=== PATIENT | male | born 1950 | race Caucasian/White ===

== ENCOUNTER 2017-02-28 10:53 | Inpatient (IN) ==
[2017-02-28 14:29] LABS: ALLEN TEST YES; BE 0.3 mmoll (-3.0-3.0); BLOOD TYPE ARTERIAL; DRAW SITE R RADIAL; METHB 1.2 % (0.0-1.5); MODALITY ROOM AIR; O2(CT) 8.4 mL/dL (15.0-23.0); PCO2(98.6) 36 mmHg (35-45); PO2(98.6) 82 mmHg (60-100); SAMPLE BLOOD; SAO2 98.6 % (95.0-100.0); THB 6.1 g/dL (11.5-17.4); pH(98.6) 7.44 (7.35-7.45)
[2017-02-28 14:31] LABS: BASO% 0.7 % (0.0-0.8); EOS# 0.09 X1000 (0.0-0.7); EOS% 1.6 % (0.0-10.0); HEMATOCRIT 22.5 % (42.0-52.0); HEMOGLOBIN 6.1 g/dL (14.0-18.0); IMM GRAN# 0.02 X1000 (0.0-0.04); IMM GRAN% 0.4 % (0.0-0.5); LYMPH% 24.6 % (20.5-51.1); MCH 17.6 PG (27-31); MCHC 27.1 g/dL (33-37); MONO# 0.58 X1000 (0.11-0.59); MONO% 10.2 % (1.7-9.3); MPV 8.7 FL (7.4-10.4); NEUT% 62.5 % (42.2-75.2); PLT 296 X1000 (130-400); RBC 3.46 XMIL (4.7-6.1)
[2017-02-28 14:32] LABS: MANUAL DIFF NEEDED? YES
[2017-02-28 15:12] LABS: AGAP 12; BUN 16 mg/dL (8-22); CALCIUM 8.3 mg/dL (8.8-10.2); CHLORIDE 104 mmol/L (98-107); COSMO 276; POTASSIUM 4.3 mmol/L (3.5-5.1); SODIUM 138 mmol/L (136-145); TCO2 22 mmol/L (25-35); TOTAL BILIRUBIN 0.54 mg/dL (0.20-1.00)
[2017-02-28 15:13] LABS: ALBUMIN 3.9 g/dL (3.5-5.0); ALKALINE PHOSPHATASE 80 U/L (32-122); CK PROFILE 73 U/L (24-204); GOT 20 U/L (10-34); GPT 22 U/L (10-44); TOTAL PROTEIN 6.3 g/dL (6.3-8.3)
[2017-02-28 15:24] LABS: BASO 2 % (0-1); EOS 1 % (1-10); LYMPHS 24 % (21-51); MONO 6 % (1-9)
[2017-02-28 15:25] LABS: HYPOCHROM 2+
--- NOTE | 2017-02-28 16:58 | Diag Imaging Result Document ---
PROCEDURE NAME: CT ABD/PELVIS W/ IV CONT ONLY - 02/28/2017 CT ABDOMEN AND PELVIS WITH IV CONTRAST: COMPARISON: None available. FINDINGS: There are several cystic-appearing renal densities bilaterally. There is no hydronephrosis. There is an irregular enhancing mass at the anterior aspect of the urinary bladder that is highly concerning for neoplasm. It measures approximately 5 x 3.7 cm axially. There are a couple of small bladder diverticula bilaterally. Prostatic calcifications are noted. Just anterior to the bladder wall mass, there is mild mesenteric stranding indicating invasion by the mass. There are perhaps a few shotty lymph nodes in this region as well. No other significant lymphadenopathy is appreciated. There is a left inguinal hernia that contains only fat. There is aortoiliac atherosclerotic calcification, but no evidence of aneurysm. The remainder of the solid viscera of the abdomen and pelvis and the remainder of the GI tract is essentially unremarkable. There is nothing that would indicate bony metastatic disease. IMPRESSION: 1. Prominent irregular urinary bladder wall mass highly concerning for neoplasm. 2. Other incidental/nonacute findings detailed above.
[2017-02-28 17:35] LABS: URINE SOURCE VOIDED
[2017-02-28 17:42] LABS: URINE MICRO REVIEW NEEDED? YES
[2017-02-28 17:43] LABS: BILIRUBIN URINE NEGATIVE (NEGATIVE); BLOOD URINE LARGE (NEGATIVE); COLOR BROWN; GLUCOSE URINE NEGATIVE (NEGATIVE); LEUKOCYTES URINE NEGATIVE (NEGATIVE); NITRITE URINE NEGATIVE (NEGATIVE); PH URINE 5.5; PROTEIN URINE 70 mg/dL (NEGATIVE); TURBIDITY URINE HAZY (CLEAR); UR EPITHELIAL CELLS <10 /HPF (<10); URINE BACTERIA NEGATIVE /HPF; URINE RBC TNTC /HPF (<10); UROBILINOGEN URINE NORMAL (NORMAL)
[2017-02-28 17:56] LABS: SP GRAVITY URINE > 1.030; URINE WBC 20-40 /HPF (<10)
[2017-02-28 18:08] LABS: HEMOGLOBIN A1C 5.1 % (4.8-6.0)
[2017-02-28] MEDS: LEVAQUIN 500 MG/D5W 500 MG/100 ML IVPB IV SCH (19:45)
[2017-02-28] MEDS ORDERED: NS 500 ML ONE (21:25)
[2017-02-28] MEDS ORDERED: NS 500 ML IV SCH (21:30)
--- NOTE | 2017-02-28 22:05 | HISTORY AND PHYSICAL ---
CHIEF COMPLAINT: Shortness of breath. Exertional chest pain for the last 2 days. HISTORY OF PRESENT ILLNESS: He is a 66-year-old white gentleman was not seen in my office since 08/30/2016. Apparently he came in with hematuria and lower abdominal pain. He also has exertional shortness of breath and chest pain. EKG showed nonspecific intraventricular conduction delays. He appears to be very pale, blood pressure is low. He refused to come but I insisted to be admitted to the hospital. Upon admission hematocrit was 22. CT scan of the abdomen, pelvis showed a bladder mass suspicious for invasion findings. As a result, hospital admission was warranted. PAST MEDICAL HISTORY: Coronary artery disease, metabolic syndrome, reflux disease, hyperlipidemia, multiple skin tags. PAST SURGICAL HISTORY: Stefan fundoplication, TURP 07/2015 by MARYJO Perdomo, 9 stents placement. MEDICATIONS: In my practice Lipitor 20 mg daily, nitroglycerin as needed, sotalol 80 p.o. b.i.d., Flomax 0.4 daily, warfarin 6 mg b.i.d. ALLERGIES: Morphine sulfate. SOCIAL HISTORY: Living in [place]. No smoking, no alcohol. Working in local [employer]. , 4 children. FAMILY HISTORY: Not known due to adoption. HEALTH MAINTENANCE: Declined vaccinations, colonoscopies, last prostate exam 02/2016 and physical as well. REVIEW OF SYSTEMS: HEENT: No headache. No vision problem. No earache. No sore throat. Dizziness upon standing. Neck: No goiter. No lymphadenopathy. No bruit. Cardiopulmonary: Exertional shortness of breath and chest pains relieving with rest. GI: No nausea, vomiting, abdominal pain. No altered bowel habits, bleeding per rectum. : Lower abdominal cramps, intermittent hematuria for the last few weeks on Coumadin. Feet: No swelling of feet. No joint pains. Neuro: Dizziness upon standing. Otherwise no weakness or seizures. EXAMINATION: Vital signs: Afebrile. Blood pressure is stable now, weight 260 pounds, 6 feet 5 inches tall. HEENT: Atraumatic, normocephalic. Pupils equal, reactive to light. Pale. Blood pressure is low in my office. TMs are normal. Neck: Supple. No lymphadenopathy. No goiter. Chest: Bilateral air entry. No rales, no wheezing. Heart: Sounds are regular. Belly: Soft, nontender. No signs of peritonitis. Rectal: Prostate is slightly enlarged. Heme-negative stool. Extremities: No peripheral edema, cyanosis. Neuro: No obvious neurological deficits. INVESTIGATIONS: CBC. White cell count 5.6, hematocrit 22, MCV is low, platelets 296,000. ABG on room air pH is 7.44, pCO2 36, PO2 82, bicarb 25. SMA 7: Sodium 138, potassium 4.3, chloride 104, CO2 22, BUN 16, creatinine 0.8, glucose 86, A1c 5.9, calcium 8.3, magnesium is normal and liver function tests were normal. Cardiac enzymes were normal. ProBNP was normal and urine positive for blood. CT scan of the abdomen and pelvis. Prominent irregular bladder mass, no hydronephrosis, couple of small bladder diverticula, prostate calcifications noted, fat containing left inguinal hernia. ASSESSMENT AND PLAN: 1. A 66-year-old white gentleman admitted to the hospital with symptomatic anemia due to hematuria with underlying Coumadin, hematocrit 22. Plan is transfusion 2 units of packed RBCs. Follow up on CBC, PT and also abnormal CT with a urinary bladder mass and follow up on cytology, Dr. Sandoval consult. 2. Status post transurethral resection of prostate for benign prostatic hypertrophy and biopsy was negative for prostate malignancy. 3. Coronary artery disease with multiple stents, abnormal EKG. Follow up on cardiac enzymes. 4. Will reconcile home medicines once his hemodynamics are stable. Discussed with the patient as well as Dr. Sandoval. cc: Emiliano Varela MD
[2017-03-01] MEDS: LIPITOR PO SCH ×2 (00:33→21:52)
[2017-03-01] MEDS: LASIX IV SCH ×2 (00:35→04:10)
--- NOTE | 2017-03-01 05:30 | EKG Report ---
Test Performed on : 02/28/2017 11:13:17 AM Test Reason : No Order in QPD Blood Pressure : / mmHG Vent. Rate : 080 BPM Atrial Rate : 089 BPM P-R Int : 000 ms QRS Dur : 132 ms QT Int : 444 ms P-R-T Axes : 000 246 064 degrees QTc Int : 512 ms Suspect arm lead reversal, interpretation assumes no reversal Wide QRS rhythm. Right bundle branch block Possible Lateral infarct , age undetermined Inferior infarct , age undetermined Abnormal ECG No previous ECGs available Unconfirmed Result
[2017-03-01 06:42] LABS: BASO% 0.7 % (0.0-0.8); EOS# 0.14 X1000 (0.0-0.7); EOS% 1.7 % (0.0-10.0); HEMOGLOBIN 8.3 g/dL (14.0-18.0); IMM GRAN# 0.02 X1000 (0.0-0.04); IMM GRAN% 0.2 % (0.0-0.5); LYMPH# 1.98 X1000 (1.2-3.4); LYMPH% 24.5 % (20.5-51.1); MANUAL DIFF NEEDED? YES; MCH 18.9 PG (27-31); MCHC 28.6 g/dL (33-37); MCV 66.2 FL (81-99); MONO% 12.4 % (1.7-9.3); MPV 9.3 FL (7.4-10.4); NEUT% 60.5 % (42.2-75.2); PLT 345 X1000 (130-400); RBC 4.38 XMIL (4.7-6.1)
[2017-03-01 06:44] LABS: INR 1.28; PROTIME 13.6 Seconds (9.2-11.7)
[2017-03-01 06:49] LABS: AGAP 15; BUN 18 mg/dL (8-22); CALCIUM 8.8 mg/dL (8.8-10.2); CHLORIDE 102 mmol/L (98-107); COSMO 283; SODIUM 140 mmol/L (136-145); TCO2 23 mmol/L (25-35)
[2017-03-01 07:44] LABS: EOS 2 % (1-10); HYPOCHROM 2+; LYMPHS 22 % (21-51); MONO 8 % (1-9); NRBC 1 % (0-0)
[2017-03-01] MEDS ORDERED: VENOFER IV ONE (08:42)
--- NOTE | 2017-03-01 08:54 | PROGRESS NOTE ---
DATE: 03/01/2017 SUBJECTIVE: No chest pain. Shortness of breath improved after 2 units of packed RBCs. REVIEW OF SYSTEMS: None reported. PHYSICAL EXAMINATION: Vital Signs: Afebrile, blood pressure is 124/70, standing was 97/62. Is and Os: Negative 1.5. HEENT Examination: Anemia slightly improved. Neck: Supple. Chest: Clear to auscultation. Heart: Heart sounds are regular. Abdomen: Belly is soft, nontender. Good bowel sounds. Extremities: No peripheral edema, cyanosis, clubbing. DIAGNOSTIC DATA: EKG showing right bundle branch pattern, pacemaker spikes. INVESTIGATIONS: CBC: White cell count 8, hematocrit 29, platelets 345,000. PT 13, INR 1.2. SMA 7: Sodium 140, potassium 4, chloride 102, BUN 18, creatinine 1, glucose 121, hemoglobin A1c 5.1, calcium 8.8. Cardiac enzymes were normal. Urine cytology is pending. A CT of the abdomen and pelvis, findings were noted. ASSESSMENT AND PLAN: 1. Symptomatic anemia with underlying coronary artery disease. Keep the hematocrit around 30 and will also give her 1 bag of iron infusion. 2. Still orthostatic. We will hold the blood pressure medicines. 3. History of coronary artery disease, on Coumadin. INR is 1.28. We will hold on. 4. Hematuria. Follow up on urine cytology. Discussed with the patient the suspicious bladder mass. Consulted Dr. Sandoval. He will do a cystoscopy in the morning. 5. Benign prostatic hyperplasia, status post transurethral resection of the prostate in 2014. Biopsy was negative. 6. We will hold the blood pressure medicine, continue orthostatic, and level of documentation 25 minutes. cc: Emiliano Varela MD
[2017-03-01] MEDS ORDERED: VENOFER 300 MG in NS 250 ML IV ONE (10:00)
--- NOTE | 2017-03-01 14:37 | CONSULTATION ---
DATE OF CONSULTATION: 03/01/2017 ATTENDING/REFERRING PHYSICIAN: Lizbeth Varela MD HISTORY OF PRESENT ILLNESS: This 66-year-old male was admitted with symptomatic acute blood-loss anemia. CT scan revealed a large mass in the bladder. The patient states he has had bleeding off and on for over 2 years. He states it seemed to of started after a TURP. He denies any history of kidney stones or problems with urinary tract infections. He states he is voiding without difficulty since the TURP. The patient has been transfused 2 units of packed red cells and feels much better. PAST MEDICAL HISTORY: Coronary artery disease, status post placement of coronary artery stents the last several years ago. A total of 9 stents have been placed. Gastroesophageal reflux disease. Elevated cholesterol. CURRENT MEDICATIONS: Documented on the chart and include Coumadin, which he has been off of now for 2 days. PAST SURGICAL HISTORY: Coronary artery stent placement, Stefan fundoplication. TURP. Multiple skin tags excised. SOCIAL HISTORY: No cigarettes since 1991, ETOH use negative. REVIEW OF SYSTEMS: He is allergic to morphine. Usually in good health. He denies any problems with diabetes, strokes, seizures, pulmonary, or bowel problems. He states his last PSA check was within the year and believes it was normal. PHYSICAL EXAMINATION: General: A mildly obese, age apparent, normally developed, white male, oriented in all ways and cooperative. HEENT: Normal for age. Lungs: Clear. Cardiovascular: Regular rate and rhythm. Abdomen: Obese, soft, nontender. No hepatosplenomegaly or masses. Normal bowel sounds. : Uncircumcised male. Both testes are down and palpably normal. No inguinal hernias. Rectal Examination: Deferred until surgery. Extremities: No clubbing, cyanosis, or edema. Neurologic: No focal deficits. DIAGNOSTIC DATA: CBC after 2 units of packed red blood cell transfusion, white count is 8, hemoglobin 8.3, hematocrit 29, platelets are 345,000. Serum electrolytes are normal. BUN 18, creatinine 1, PT was 13.6 with an INR of 1.28. CT scan again reveals a 3 x 5 cm bladder mass with probable clots. IMPRESSION: 1. Symptomatic acute blood-loss anemia that has improved after transfusion. 2. Large bladder mass. PLAN: 1. Cystoscopic exam. Clot irrigation if needed. 2. Bilateral retrograde ureteral pyelograms. 3. Cold cup bladder biopsies. 4. Transurethral resection of a bladder tumor. The planned procedure, benefits versus risks, possible complications, including, but not limited to, bleeding, infection, not being able to remove all of the tumor, need for further surgery, need for further bladder cancer treatment was discussed. He seems to understand and desires to proceed. cc: MD Emiliano Valdivia MD
[2017-03-01] MEDS: LEVAQUIN 500 MG/D5W 500 MG/100 ML IVPB IV SCH (17:57)
[2017-03-02] MEDS ORDERED: NEOSPORIN G.U. IRRIGANT ONE (09:07)
[2017-03-02] MEDS ORDERED: DEMEROL ONE ×2 (11:06→11:20)
--- NOTE | 2017-03-02 12:34 | Diag Imaging Result Document ---
PROCEDURE NAME: RETROGRADES 2 OR 3 FILMS - 03/02/2017 BILATERAL RETROGRADE PYELOURETEROGRAM: COMPARISON: 03/12/2015. FINDINGS: Eighteen spot fluoroscopic images were provided, which were performed during bilateral retrograde pyeloureterogram by Dr. Bharath Sandoval. The ureters are grossly normal in course and caliber. There is no discrete filling defect or stricture identified. The renal collecting systems are grossly unremarkable. There is no definite hydronephrosis. IMPRESSION: As above. Please correlate with live fluoroscopic imaging.
[2017-03-02] MEDS: NORCO-7.5 PO PRN ×3 (12:39→20:28)
[2017-03-02] MEDS ORDERED: FENTANYL ONE (13:59)
[2017-03-02] MEDS ORDERED: DIPRIVAN 1% ONE (13:59)
[2017-03-02] MEDS ORDERED: NEOSTIGMINE ONE (15:37)
[2017-03-02] MEDS ORDERED: ZOFRAN ONE (15:37)
[2017-03-02] MEDS ORDERED: ROBINUL ONE (15:38)
[2017-03-02] MEDS ORDERED: DECADRON ONE (15:38)
[2017-03-02] MEDS ORDERED: NORCURON ONE (15:38)
[2017-03-02] MEDS ORDERED: QUELICIN (DOSE) ONE (15:38)
[2017-03-02] MEDS ORDERED: XYLOCAINE-MPF 2% ONE (15:38)
--- NOTE | 2017-03-02 17:43 | OPERATIVE NOTE ---
PROCEDURE DATE: 03/02/2017 SURGEON: Bharath Sandoval MD. PREOPERATIVE DIAGNOSIS: Gross hematuria with bladder tumor. POSTOPERATIVE DIAGNOSIS: Gross hematuria with bladder tumor. PROCEDURE PERFORMED: 1. Cystoscopic exam, clot irrigation.. 2. Bilateral retrograde ureteral pyelograms. 3. Cold cup bladder biopsies. 4. Transurethral resection of a bladder tumor about 10 sq cm in area. EXAM: Rectal exam: Prostate about 40g, firm. TURP defect in the midline at the base. INDICATION FOR PROCEDURE: This 66-year-old male states he has a 2 year history of gross hematuria intermittently over 2 years and most recently it became constant. He was seen by his family physician when he started feeling very weak. Evaluation revealed a hematocrit of 21%. The patient was noted to have severe anemia and was admitted for blood transfusion. A CT scan was obtained that revealed a large bladder mass plus a large diverticulum. FINDINGS: Cystoscopic exam: Urethra-greater than 28-Italian without stricture. Prostate - status post TURP with mild regrowth of the lateral lobes, length approximately 4 cm. Bladder after clot irrigation had normal ureteral orifices bilaterally. There was a large bladder tumor going from the posterior wall dome and anterior wall at bladder neck. Also noted was a large diverticulum on the right lateral wall that had a large bladder tumor as well. Left retrograde ureteral pyelogram normal without filling defect. Right retrograde ureteral pyelogram normal without filling defect. Rectal exam revealed a prostate of about 40g, firm status post TURP with a defect in the midline at the base. DESCRIPTION OF PROCEDURE: After informed consent was obtained from the patient, and him receiving IV antibiotics, he was taken the main OR cystoscopy room and placed in supine position. General anesthesia via endotracheal tube was achieved. He was then placed in a low lithotomy position and prepped and draped in the usual sterile fashion for cystoscopic exam. A 21-Italian cystoscope was passed the patient's urethra, prostate, and into the bladder where a large amount of clot was seen. This was irrigated out and finally cleared out, but the bladder tumor was bleeding, mainly from the dome area. The cold cup biopsy forceps were placed and cold cup biopsies were taken from the left wall, the right wall and the bladder neck area. A cold cup of the bladder tumor from the dome was taken and a cold cup from the tumor in the diverticulum was taken. These were sent to Pathology in separate containers. The cystoscope was removed and the 28-Italian continuous flow resectoscope sheath was placed. The thin gyrus loop electrode was placed. Hemostasis from the biopsy sites were achieved and the large bladder tumor was resected. Hemostasis was achieved with electrocautery. The chips were irrigated from the bladder. After visualization was able, an 8-Italian cone-tipped catheter was used to do bilateral retrograde ureteral pyelograms, left side and then right side. Again, no filling defects were seen on either side. Because of the amount of tumor removed from the bladder. It was decided to come back in 24 hours to resect the tumor from the diverticulum. The bladder was left distended. The resectoscope was removed. A 22-Italian, 3 way Skelton catheter was passed through the patient's urethra, prostate, and in the bladder. 10 mL of sterile water were placed in Skelton's balloon. Skelton was placed to gravity drain. The efflux was light ora in color. Continuous bladder irrigation was started and it immediately cleared. A rectal exam was performed. He tolerated the procedure well. ESTIMATED BLOOD LOSS: Around 10 mL he was taken to recovery room extubated and in good condition. cc: MD Emiliano Valdivia MD
[2017-03-02] MEDS: LEVAQUIN 500 MG/D5W 500 MG/100 ML IVPB IV SCH (17:45)
--- NOTE | 2017-03-02 18:06 | PROGRESS NOTE ---
DATE: 03/02/2017 SUBJECTIVE: Patient did receive 2 units of packed RBCs and iron infusion. Blood pressure is getting stable. REVIEW OF SYSTEMS: None reported. PHYSICAL EXAMINATION: Vital Signs: Stable. HEENT: Within normal limits. Neck: Supple. No lymphadenopathy. Chest: Clear to auscultation. Heart: Sounds are regular. Abdomen: Belly is soft, nontender. Good bowel sounds. Extremities: No peripheral edema or cyanosis. No obvious deficits noted. INVESTIGATIONS: CBC: White cell count 8, hematocrit 29, platelets 345,000. INR 1.28. SMA7: Normal. Cardiac enzymes are normal. Urine cytology is pending. ASSESSMENT AND PLAN: 1. Anemia, due to hematuria, stable. 2. Coronary artery disease, stable. 3. Hematuria with abnormal CT. Discussed with Dr. Sandoval. Waiting for cystoscopy and bladder biopsy. 4. We will hold his medications for blood pressure. I discussed with the patient and Dr. Sandoval. LEVEL OF DOCUMENTATION: 25 minutes. cc: Emiliano Varela MD
[2017-03-02] MEDS: LIPITOR PO SCH (20:16)
[2017-03-02] MEDS: PERIDEX MT SCH (20:17)
[2017-03-03] MEDS: NORCO-7.5 PO PRN ×4 (00:25→19:31)
[2017-03-03 06:16] LABS: BASO% 0.1 % (0.0-0.8); HEMATOCRIT 28.7 % (42.0-52.0); IMM GRAN# 0.04 X1000 (0.0-0.04); IMM GRAN% 0.3 % (0.0-0.5); LYMPH# 1.27 X1000 (1.2-3.4); LYMPH% 10.9 % (20.5-51.1); MANUAL DIFF NEEDED? NO; MCHC 27.9 g/dL (33-37); MONO# 1.12 X1000 (0.11-0.59); MONO% 9.6 % (1.7-9.3); MPV 9.3 FL (7.4-10.4); NEUT% 79.1 % (42.2-75.2); PLT 333 X1000 (130-400); RBC 4.22 XMIL (4.7-6.1)
[2017-03-03 06:47] LABS: AGAP 12; BUN 15 mg/dL (8-22); CALCIUM 8.9 mg/dL (8.8-10.2); CHLORIDE 103 mmol/L (98-107); COSMO 280; POTASSIUM 4.3 mmol/L (3.5-5.1); SODIUM 138 mmol/L (136-145); TCO2 23 mmol/L (25-35)
--- NOTE | 2017-03-03 09:02 | PROGRESS NOTE ---
DATE: 03/03/2017 SUBJECTIVE: Internal history was reviewed. The patient had a cystoscopy done by Dr. Sandoval. The findings are suspicious for malignancy. Pathology reports are pending. He also had a bladder diverticulum and had a cancers inside. Patient was placed on Real's drip and going for second look today. Upon questioning, the patient complaints of bladder spasms and leg pains. REVIEW OF SYSTEMS: No chest pain. No shortness of breath. PHYSICAL EXAMINATION: Vital Signs: Stable. Afebrile. General Appearance: Slightly pale. HEENT Examination: Within normal limits. Neck: Supple. No lymphadenopathy. Chest: Clear to auscultation. Cardiovascular: Heart sounds are regular. Abdomen: Belly is soft, nontender. Skelton catheter with Real strips seen. Extremities: No signs of gangrene. INVESTIGATIONS: White cell count 11, hematocrit 28, platelet count 333,000. SMA 7 is normal. Urine cytology is pending. ASSESSMENT AND PLAN: 1. Anemia due to hematuria, suspicious for bladder cancer. Waiting for pathology. 2. Hematocrit 28. In light of his extensive coronary artery disease, I want to keep the hematocrit more than 30. Transfuse 1 unit of packed RBCs. 3. Continue on IV antibiotics. Hyperlipidemia on Lipitor. Continued to hold his home medications since the blood pressure is still on the low side. Findings discussed with the patient and the family and going to relook for cystoscopy this afternoon. Will keep him over the weekend and follow up on the biopsy report. cc: Emiliano Varela MD
[2017-03-03] MEDS: PERIDEX MT SCH ×2 (09:32→21:03)
[2017-03-03] MEDS ORDERED: B & O 16A SUPP ONE (15:23)
[2017-03-03] MEDS ORDERED: DIPRIVAN 1% ONE (15:45)
[2017-03-03] MEDS ORDERED: FENTANYL ONE (15:45)
[2017-03-03] MEDS: DILAUDID ONE ×3 (15:54→16:16)
[2017-03-03] MEDS ORDERED: QUELICIN (DOSE) ONE (16:16)
[2017-03-03] MEDS ORDERED: ROBINUL ONE (16:16)
[2017-03-03] MEDS ORDERED: ZEMURON ONE (16:16)
[2017-03-03] MEDS ORDERED: LR 1,000 ML ONE (16:16)
[2017-03-03] MEDS ORDERED: NEOSTIGMINE ONE (16:16)
[2017-03-03] MEDS ORDERED: EXTENSION SET 32 IN 4522 ONE (16:16)
[2017-03-03] MEDS ORDERED: XYLOCAINE-MPF 2% ONE (16:16)
[2017-03-03] MEDS ORDERED: ANESTHESIA PB SET 88 IN 5742 ONE (16:16)
--- NOTE | 2017-03-03 16:34 | OPERATIVE NOTE ---
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 PROCEDURES PERFORMED: 1. Transurethral resection of a bladder tumor from the previously resected site. 2. Transurethral resection of a large bladder tumor from the diverticulum on the right bladder wall. ANESTHESIA: General endotracheal. FINDINGS: Cystoscopic exam: Urethra greater than 28-S[place]ankan without stricture. Prostate: Status post TURP, wide open channel, length approximately 3.5 to 4 cm. Bladder: Normal ureteral orifices bilaterally. The previously resected tumor site was healing. There was 1 area that appeared suspicious for cancer that was about 2 cm in diameter, and this was resected and sent to Pathology in its own container. There were bladder diverticula, the largest on the left and right wall. The left wall diverticulum was completely empty with just normal bladder mucosa. The one on the right wall had an approximate 3 cm diameter large bladder tumor. This essentially filled the diverticulum. Rectal exam revealed a prostate of about 40 grams, smooth, firm, consistent with previous prostate resection. INDICATIONS FOR PROCEDURE: This 66-year-old male was admitted to the hospital with acute blood- loss anemia. Evaluation revealed a very large bladder tumor (about 7 cm in diameter) and a large tumor in a bladder diverticulum off the right wall. He underwent resection of the large bladder tumor yesterday and presents for a second-stage resection. DESCRIPTION OF PROCEDURE: After informed consent was obtained from the patient and him receiving IV antibiotics, he was taken to the main OR cystoscopy room and placed in the supine position. General endotracheal anesthesia was achieved. He was then placed in the low lithotomy position and prepped and draped in the usual sterile fashion for cystoscopic exam. A 21-S[place]ankan cystoscope was passed through the patient's urethra, prostate, and then into the bladder with the findings noted above. The cystoscope was removed. A 28-S[place]ankan continuous flow resectoscope sheath was placed. The gyrus thin loop electrode was placed. The suspicious area at the previously resected tumor site was excised and sent to Pathology in its own container. The tumor from the diverticulum on the right wall was completely resected. The tumor was located very close to the obturator nerve on the right. After all the tumor was removed, another inspection was made. No bleeding areas were seen. No tumors or chips were left in the bladder. The bladder was left distended, and a 22-S[place] Lankan 3-way coude catheter was passed through the patient's urethra, prostate, into the bladder without difficulty, and 10 mL of sterile water was placed in the Skelton's balloon. The efflux was light ora in color. Continuous bladder irrigation was started, and it completely cleared. A 16A B and O suppository was placed as a rectal exam was performed. He tolerated the procedure well. The estimated blood loss was right at 50 mL. He was extubated and taken to the recovery room in good condition. cc: MD Emiliano Valdivia MD
[2017-03-03] MEDS ORDERED: B & O 16A SUPP PR PRN (16:46)
[2017-03-03] MEDS: LEVAQUIN 500 MG/D5W 500 MG/100 ML IVPB IV SCH (18:19)
[2017-03-03] MEDS: LIPITOR PO SCH (21:03)
[2017-03-04] MEDS: NORCO-7.5 PO PRN ×5 (02:01→20:58)
--- NOTE | 2017-03-04 10:42 | PROGRESS NOTE ---
DATE: 03/04/2017 Mr. Goddard is doing fairly well. Mr. Goddard was operated [address] Sandoval. He did transurethral bladder tumor resection. His hemoglobin yesterday was 8.0, hematocrit 28.7. Electrolytes are normal. We will repeat another hemoglobin and hematocrit tomorrow. -0 cc: MD Emiliano Dutta MD
[2017-03-04] MEDS: PERIDEX MT SCH ×2 (10:45→20:59)
[2017-03-04] MEDS: DITROPAN PO PRN ×3 (11:55→20:58)
[2017-03-04] MEDS: LEVAQUIN 500 MG/D5W 500 MG/100 ML IVPB IV SCH (18:00)
[2017-03-04] MEDS: LIPITOR PO SCH (20:58)
[2017-03-05] MEDS: NORCO-7.5 PO PRN ×4 (01:40→19:34)
[2017-03-05] MEDS: DITROPAN PO PRN ×3 (06:04→22:09)
[2017-03-05 09:07] LABS: BASO% 0.6 % (0.0-0.8); EOS% 4.4 % (0.0-10.0); HEMATOCRIT 32.6 % (42.0-52.0); HEMOGLOBIN 9.2 g/dL (14.0-18.0); IMM GRAN# 0.04 X1000 (0.0-0.04); IMM GRAN% 0.6 % (0.0-0.5); LYMPH# 1.17 X1000 (1.2-3.4); LYMPH% 17.3 % (20.5-51.1); MANUAL DIFF NEEDED? NO; MCH 20.2 PG (27-31); MCHC 28.2 g/dL (33-37); MCV 71.5 FL (81-99); MONO# 0.87 X1000 (0.11-0.59); MONO% 12.8 % (1.7-9.3); MPV 8.7 FL (7.4-10.4); NEUT% 64.3 % (42.2-75.2); PLT 252 X1000 (130-400); RBC 4.56 XMIL (4.7-6.1)
[2017-03-05] MEDS: PERIDEX MT SCH ×2 (09:35→22:10)
[2017-03-05] MEDS: LEVAQUIN 500 MG/D5W 500 MG/100 ML IVPB IV SCH (18:28)
[2017-03-05] MEDS: LIPITOR PO SCH (22:09)
[2017-03-06] MEDS: NORCO-7.5 PO PRN ×4 (03:52→23:42)
--- NOTE | 2017-03-06 08:35 | PROGRESS NOTE ---
DATE: 03/05/2017 The patient is feeling better. His urine is clear. Vital signs are stable. Lungs are clear. Heart sounds are normal. We will continue with the current management on him. -6 cc: MD Emiliano Dutta MD
[2017-03-06] MEDS ORDERED: B & O 16A SUPP PR PRN (08:52)
--- NOTE | 2017-03-06 09:19 | PROGRESS NOTE ---
DATE: 03/06/2017 SUBJECTIVE: The patient is doing well. Complains of bladder spasms. Not improving with Ditropan. The patient had two cystoscopies by Dr. Sandoval. He wants to keep the Skelton in until he will see him in his office on . REVIEW OF SYSTEMS: None reported. PHYSICAL EXAMINATION: Vital Signs: Stable. HEENT Examination.: Within normal limits. Neck: Supple. No lymphadenopathy. No goiter. Chest: Bilateral air entry. No rales, no wheezing. Heart: Sounds are regular. Abdomen: Belly is soft, nontender. Good bowel sounds. No masses palpable. Skelton catheter was placed. No bleeding noted. INVESTIGATIONS: CBC: White cell count 6.7, hematocrit 32, platelets 252,000. Biopsy report was pending. Urine cultures were negative. ASSESSMENT AND PLAN: 1. Hematuria due to bladder cancer. Followup on pathology report. Continue the Skelton. 2. Bladder spasms. Will give Ditropan B O #16 suppositories. 3. Anemia. Much improved. 4. Followup on orthostatic blood pressures. We will slowly start his home medications. DISPOSITION: Will be discharged in the morning if he is stable today. LEVEL OF DOCUMENTATION: Twenty-five minutes. cc: Emiliano Varela MD
[2017-03-06] MEDS: PERIDEX MT SCH ×2 (09:20→23:10)
[2017-03-06] MEDS: LIPITOR PO SCH (23:10)
[2017-03-06] MEDS: LEVAQUIN 500 MG/D5W 500 MG/100 ML IVPB IV SCH (23:48)
[2017-03-07 06:28] LABS: AGAP 12; BUN 17 mg/dL (8-22); CALCIUM 8.7 mg/dL (8.8-10.2); CHLORIDE 99 mmol/L (98-107); COSMO 276; POTASSIUM 4.1 mmol/L (3.5-5.1); SODIUM 137 mmol/L (136-145); TCO2 26 mmol/L (25-35)
[2017-03-07 06:36] LABS: BASO% 0.6 % (0.0-0.8); EOS# 0.33 X1000 (0.0-0.7); EOS% 4.7 % (0.0-10.0); HEMATOCRIT 33.2 % (42.0-52.0); HEMOGLOBIN 9.5 g/dL (14.0-18.0); IMM GRAN# 0.03 X1000 (0.0-0.04); IMM GRAN% 0.4 % (0.0-0.5); LYMPH# 1.17 X1000 (1.2-3.4); LYMPH% 16.6 % (20.5-51.1); MANUAL DIFF NEEDED? NO; MCH 20.4 PG (27-31); MCHC 28.6 g/dL (33-37); MCV 71.2 FL (81-99); MONO# 0.74 X1000 (0.11-0.59); MONO% 10.5 % (1.7-9.3); MPV 9.4 FL (7.4-10.4); NEUT% 67.2 % (42.2-75.2); PLT 219 X1000 (130-400); RBC 4.66 XMIL (4.7-6.1)
[2017-03-07 07:38] VITALS: BP 123/73
--- NOTE | 2017-03-08 09:44 | DISCHARGE SUMMARY ---
ADMISSION DATE: 02/28/2017 DISCHARGE DATE: 03/07/2017 DISCHARGING DIAGNOSES: Symptomatic anemia due to hematuria from bladder cancer. SECONDARY DIAGNOSES: 1. Coronary artery disease. 2. Acid reflux disease. 3. Hyperlipidemia. 4. Metabolic syndrome. 5. Benign prostatic hypertrophy. 6. Status post automatic implantable cardioverter-defibrillator. CONSULTANTS: Bharath Sandoval MD PROCEDURES: Transfusion of 3 units of packed RBC. Transfusion of 1 unit of iron transfusion. PROCEDURES: Cystoscopies x2. Excision of the bladder mass at 2 places at the trigone and the bladder diverticulum. BRIEF HISTORY: Please see the history and physical that was done on 02/28/2017. In brief, he is a 66-year-old white gentleman who came to the office with intermittent hematuria ever since he had benign prostatic hypertrophy and also complains of shortness of breath and exertional chest pain. He had a transurethral resection of the prostate done in 2014. He has been on Coumadin. He was very pale and hypotensive. HOSPITAL COURSE: 1. He was admitted because of exertional chest pain with underlying anemia and hematocrit was 22. He was given a blood transfusion of 3 units, as well as 1 unit of iron transfusion. After transfusion his chest pain is much improved. 2. He had significant hematuria intermittent, on warfarin. It has been stopped. Dr. Sandoval was consulted. CT scan of the abdomen and pelvis findings were suspicious for bladder cancer with invasive findings. Dr. Sandoval did twice cystoscopy and found the bladder cancer at 2 places, but pathological findings were not released. The patient was placed on Skelton catheter and complains of bladder spasms, for which he was given Ditropan and B O #16 suppositories. At the time of discharge, patient is stable. LABORATORIES: CBC: White cell count 7.6, hematocrit 33, platelets 219,000. SMA-7 sodium 137, potassium 4.1, chloride 91. BUN 17, creatinine 1.0. Urine cytology was pending. CT of the abdomen and pelvis prominent irregular bladder wall mass, highly concerning neoplasm. No hydronephrosis. DISCHARGE INSTRUCTIONS: 1. Follow up on the bladder biopsy report about invasiveness of the muscle. Based on that, further recommendations will be given by Dr. Sandoval. 2. Skelton catheter with leg bag. 3. Sotalol 40 p.o. b.i.d. 4. Hold lisinopril. 5. Lipitor 20 daily. 6. Hold warfarin. 7. Aspirin 325 daily. 8. Lasix as needed. 9. Katiana-Colace 1 tablet p.o. b.i.d. 10. Icar-C Plus 1 tablet daily. 11. Followup with Dr. Sandoval on , as well as in my office. 12. Followup on urine cytology and biopsy report. cc: MD Bharath Sheffield MD
== END 2017-03-07 10:08 | disposition home or self-care (01) ==
LOC: EDIPHOLD 13:17 → 4N 16:31
PROVIDERS: ADMIT Internal Medicine; ATTEND Internal Medicine